=== PATIENT | male | born 1985 | race Caucasian/White ===

== ENCOUNTER 2022-09-19 01:00 | Day surgery (SDC) | payer OTHER, SELFPAY ==
[2022-09-18 08:43] VITALS: BMI 33.2
--- NOTE | 2022-09-19 11:40 | W.PM.OPSUD ---
Surgery/Procedure H&P Update DATE OF PROCEDURE: September 19, 2022 DATE H&P PERFORMED: 08/26/22 PREOP DIAGNOSIS: Incisional hernia PLANNED PROCEDURE: Operation Date: 09/19/22 12:20 Proposed Procedures p lap repair of incisional hernia with mesh 79161,K43.2(Not Applicable) - Neal Vaelnte DO
--- NOTE | 2022-09-19 11:54 | PC.NURSE ---
Pt left before pre-op was complete and rescheduled d/t insurance issues.
== END 2022-09-19 23:00 | disposition home or self-care (01) ==
PROVIDERS: PCP Nurse Practitioner; Visit Provider Surgery
PROC: 0WQF4ZZ Repair Abdominal Wall, Percutaneous Endoscopic Approach (ICD-10-PCS; principal; 2022-09-19 16:25)
DX: Z01.818 Encounter for other preprocedural examination (principal); Z53.8 Procedure and treatment not carried out for other reasons
CPT/HCPCS: J1100; J2250; J2405; J2704; J3010; J3490

== ENCOUNTER 2022-10-21 06:25 | Day surgery (SDC) | payer OTHER, SELFPAY ==
[2022-10-17 13:12] VITALS: BMI 32.3
[2022-10-21] VITALS (9 sets, daily range): BP systolic 116–133; BP diastolic 81–93; PULSE 66–103; RESP 15–18; TEMP 36.4–36.7; O2SAT 91–97
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
[2022-10-21] MEDS: sodium chloride 0.9% 1,000 ML 30 ML IV (07:16)
--- NOTE | 2022-10-21 07:22 | P.HP_ITS ---
Providers/Chief Complaint Primary Care Provider: Roni Goldberg Chief Complaint: K43.2 History of Present Illness Robert Manuel is a 37 year old male here for repair of his incisional hernia Medications/Allergies Home Medications Medication Instructions Recorded Confirmed Last Taken Type hydroxyzine HCl 25 mg tablet 25 mg PO PRN Anxiety 08/26/22 10/17/22 10/20/22 History venlafaxine 25 mg tablet 25 mg PO DAILY 08/26/22 10/17/22 10/20/22 History Allergies Allergy/AdvReac Type Severity Reaction Status Date / Time No Known Allergies Allergy Verified 10/17/22 13:11 PFSH Acute PFSH: Medical History (Updated 08/26/22 @ 14:55 by Neal Valente DO) Hemorrhagic stroke Incisional hernia Surgical History Hx of adenoidectomy Hx of appendectomy Social History Smoking and tobacco status: current every day smoker cigarettes and smokeless tobacco Alcohol intake: former Vitals/I&O/Wt Last Vital Signs Temp 97.5 F L 10/21/22 06:42 Pulse 66 10/21/22 06:42 Resp 18 10/21/22 06:42 BP 121/82 10/21/22 06:42 Pulse Ox 97 10/21/22 06:42 O2 Del Method 10/21/22 06:42 A&P Assessment and plan (1) Incisional hernia: Plan Laparoscopic of incionall hernia repair with mesh Risks and benefits were explained and documented Attestations Medical Necessity Statement*: home Coding Level of Care Code Acute Code for [facility] Fwd Diagnoses Incisional hernia K43.2
--- NOTE | 2022-10-21 07:24 | W.PM.OPSUD ---
Surgery/Procedure H&P Update DATE OF PROCEDURE: October 21, 2022 DATE H&P PERFORMED: 09/19/22 PREOP DIAGNOSIS: Incisional hernia PLANNED PROCEDURE: Operation Date: 10/21/22 08:00 Proposed Procedures p [id number] lap repair of incisional hernia with mesh K43.2(Not Applicable) - Neal Valente DO
[2022-10-21] MEDS: ceFAZolin 2,000 MG in sodium chloride 0.9% (plus) 50 ML 100 MG IV (08:06)
[2022-10-21] MEDS: tranexamic acid 1,000 mg/10mL SDV 1000 MG IV ×2 (08:56→09:53)
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
[2022-10-21] MEDS: fentaNYL 50 mcg/mL INJ 2mL 100 MCG IVP (10:20)
[2022-10-21] MEDS: HYDROcodone-acetaminophen 7.5-325 mg Tablet 1 TAB PO (10:48)
--- NOTE | 2022-10-21 13:16 | ANE.PACU2 ---
Inpatient post-anesthesia follow up: Airway intact: Yes Vital signs: Temperature 98.1 F Pulse Rate 83 Respiratory Rate 16 Blood Pressure 128/81 Pulse Oximetry 94 Oxygen Delivery Me thod Room Air Oxygen Flow Rate 6 Fraction of Inspir ed Oxygen Hydration adequate: Yes Nausea and vomiting: No Pain level: 1 Mental status: Baseline
== END 2022-10-21 12:25 | disposition home or self-care (01) ==
PROVIDERS: PCP Nurse Practitioner; Visit Provider Surgery
PROC: 0WQF4ZZ Repair Abdominal Wall, Percutaneous Endoscopic Approach (ICD-10-PCS; CPT 49593; principal; 2022-10-21 08:00)
DX: K43.2 Incisional hernia without obstruction or gangrene (principal); F17.210 Nicotine dependence, cigarettes, uncomplicated
CPT/HCPCS: 49593; 51702; 88302; C1781; J0690; J1100; J1170; J2250; J2370; J2405; J2704; J2710; J3010; J3490; J7030

== ENCOUNTER 2025-03-27 20:10 | Emergency (ER) | payer BC, SELFPAY ==
[2025-03-27 20:23] VITALS: BP 135/81; PULSE 74; TEMP 36.6; O2SAT 97; BMI 31.5
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
[2025-03-27 20:48] LABS: Glucose Urine UA Negative (Normal); Nitrate Urine Positive (Negative)
[2025-03-27 21:04] LABS: Add Urine Microscopic? YES; Specific Gravity, Urine 1.037 (1.005-1.030); UA Manual Slide Review YES
--- NOTE | 2025-03-27 22:16 | CTR_ITS ---
PROCEDURE INFORMATION: Exam: CT Abdomen And Pelvis Without Contrast Exam date and time: 03/27/2025 10:27 PM Age: 39 years old Clinical indication: Abdominal pain; Prior surgery; Surgery date: 6+ months; Surgery type: Hernia repair. Appy; Left flank pain with hematuria; Additional info: Abd pain hematuria TECHNIQUE: Imaging protocol: Computed tomography of the abdomen and pelvis without contrast. Radiation optimization: All CT scans at this facility use at least one of these dose optimization techniques: automated exposure control; mA and/or kV adjustment per patient size (includes targeted exams where dose is matched to clinical indication); or iterative reconstruction. COMPARISON: No prior studies available. RADIATION DOSE METRICS: Total DLP (mGy-cm): 859.35 FINDINGS: Liver: Calcifications along the anterior right hepatic lobe. Macrolobulated contour of portions of the left hepatic lobe. Gallbladder and biliary ducts: No gallbladder distension or inflammation. No calcified gallstones are apparent. No common bile duct abnormality is evident. Pancreas: No evidence of pancreatitis. No ductal dilation. Spleen: Spleen is mildly enlarged. Adrenal glands: Adrenal glands are within expected limits. Kidneys and ureters: 13 mm calculus in the left renal pelvis near the UPJ with mild proximal pelvicaliectasis. Some adjacent fat stranding as well. Additional small intrarenal calculus within the left kidney. Right kidney and right ureter grossly unremarkable. Stomach and bowel: Small bowel is normal caliber. No obstruction. Large bowel within normal limits. No inflammatory wall thickening or abnormal bowel dilatation. Appendix: No evidence of appendicitis. Intraperitoneal space: No free air. No significant fluid collection. Vasculature: No abdominal aortic aneurysm. Lymph nodes: No pathologically enlarged lymph nodes by CT size criteria. Urinary bladder: Unremarkable as visualized. Reproductive: Unremarkable as visualized. Bones/joints: No acute osseous abnormalities. Soft tissues: Small fat containing umbilical and paraumbilical hernias. CT/CT kidney stone [id number] IMPRESSION: Left renal pelvis 13 mm calculus with some mild obstructive features and adjacent inflammatory stranding. Intermittent obstruction at the UPJ by ball valve mechanism may be present. Additional smaller nonobstructive calculus within the left kidney.
[2025-03-27 22:49] LABS: Hematocrit 42.9 % (37-53); Hemoglobin 15.00 g/dL (11.27-16.99); Mean Corpuscular HGB Conc 35.0 g/dL (30-55); Mean Corpuscular Hemoglobin 31.0 pg (27-33); Mean Corpuscular Volume 88.6 fl (82-101); Nucleated Red Blood Cells % 0 %; Platelet Count 220 10^3/cmm (157-399); Red Blood Count 4.84 10^6/uL (3.85-5.65); White Blood Count 8.98 10^3/uL (3.29-11.43)
[2025-03-27 23:00] VITALS: BP 119/66; PULSE 69; RESP 16; O2SAT 92
[2025-03-27] MEDS: cefTRIAXone 1,000 mg SDV 1000 MG IVP (23:06)
[2025-03-27 23:07] LABS: Alanine Aminotransferase 22 U/L (0-41); Albumin Level 4.3 g/dL (3.5-5.2); Alkaline Phosphatase 75 U/L (40-130); Anion Gap 15.6 (5-19); Aspartate Amino Transferase 17 U/L (0-40); Blood Urea Nitrogen 19 mg/dL (6-20); Calcium 9.8 mg/dL (8.5-10.5); Carbon Dioxide 25 mmol/L (22-29); Chloride 106 mmol/L (98-107); Creatinine Clr Calc Pharmacy 164.4421; Globulin 3.0 g/dL (1.3-4.6); Glucose 79 mg/dL (65-115); Osmolality Calculated 297 mOsm/kg (285-295); Potassium 3.6 mmol/L (3.5-5.1); Sodium 143 mmol/L (136-145); Total Protein 7.3 g/dL (6.6-8.7)
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
[2025-03-28 00:13] VITALS: BP 111/66; PULSE 88; RESP 16; O2SAT 96
== END 2025-03-28 00:14 | disposition home or self-care (01) ==
PROVIDERS: Emergency Provider Emergency Medicine; PCP Family Medicine
DX: N39.0 Urinary tract infection, site not specified (principal); R31.9 Hematuria, unspecified; F17.210 Nicotine dependence, cigarettes, uncomplicated
CPT/HCPCS: 74176; 80053; 81001; 85025; 86140; 87086; 87491; 87591; 96374; 99285; J0696

== ENCOUNTER 2025-04-04 09:42 | Emergency (ER) | payer BC, SELFPAY ==
--- OUTSIDE RECORDS SUMMARY | 2025-03-30 05:00 | XMS_ITS ---
Author Organization [facility], [facility] Address [address] [place] [address] Care Team Providers Care Senior Cisco Network Engineer Name Role Phone Homero Tinsley [phone] Allergies No Known Allergies Results Component Value Reference Range Notes Urinalysis, Routine Reviewed date:03/30/2025 10:49:29 AM Interpretation: Performing Lab: Notes/Report: Urine-Color orange Appearance cloudy Glucose - Bilirubin - Ketones - Specific [place] 1.025 Occult Blood 3+ pH 6.0 Urine [...] with hydronephrosis (N13.2) Active confirmed Problem Nephrolithiasis (96497730) Nephrolithiasis (N20.0) Active confirmed Vital Signs Blood [...] [facility], [place] Javier [address] [place] [address] 03/30/2025 Hmoero Tinsley Ureteral stone with hydronephrosis N13.2 ; [...] Date Bladder Scan 03/30/2025 Electrocardiogram, 12 Lead Tracing-[id number] 03/30/2025 Next Appt Details Follow Up: schedule for L UR S stone manip/stent, Reason: Provider Name:HOMERO Spann, 04/05/2025 06:00:00 AM, [address] [facility] [place], [address], Progress Notes * Marlena ZEEshua RDOB:[birth year] (39 yo M)Acc No.[id number]:03/30/2025 Progress Notes Patient: Robert DIAZ Provider: Joao Tinsley APRN :1985 A ge:39 Y S ex:Male Date:03/30/2025 Address:[place] [address] Subjective: * Chief Complaints: * 1 . [...] * K etones - * S pecific [place] 1.025 * O ccult Blood 3+ * p H 6.0 * U rine Protein 1+ * U robilinogen,Semi-Qn - * N itrite, Urine - * W BC Esterase 1+ ?Procedure: Bladder Scan* Nohemi Guillory 03/30/2025 1 0:47:20 AM CDT > PVR 15ml 2.?Surgical counseling visit?Imaging: Electrocardiogram, 12 Lead Tracing-[id number]* * Procedure Codes: 5 1798 US URINE CAPACITY MEASURE, 47049 URINALYSIS, AUTO, W/O SCOPE * Follow Up: s chedule for L URS stone manip/stent * Billing Information: * Visit Code: 87715 Office Visit, New Pt., Level 3. * Procedure Codes: 05155 US URINE CAPACITY MEASURE. 32458 URINALYSIS, AUTO, W/O SCOPE. Images * mobile_03/30/2025 10:22:22 * Sign off status: Completed true * Provider: Joao Tinsley APRN Date: 0 03/30/2025 Generated for Maria R french/Greg/Sarojitting on: 0 04/04/2025 09:53 AM CDT History and Physical Notes * [...]
--- OUTSIDE RECORDS SUMMARY | 2025-04-04 09:53 | XMS_ITS | Clinical Summary ---
Author Organization [facility] Address [address] Garcia: Epic Prelude ADT [place] [address] Care Team Providers Care Nuclear Logging Engineer Name Role Phone Mekhi Kuo MD Primary [...] on file Legal Sex Male 10:08 AM PIANO ACCOMPANIST Gender Identity Not on file Sexual Orientation Not on file Last Filed Vital Signs Vital Sign Reading Time Taken Comments Blood Pressure 138/78 09/04/2016 12:55 PM PIANO ACCOMPANIST Pulse 102 09/04/2016 12:55 PM PIANO ACCOMPANIST Temperature 36.7 C (98 F) 08/21/2016 11:25 AM PIANO ACCOMPANIST Respiratory Rate 16 08/21/2016 11:25 AM PIANO ACCOMPANIST Oxygen Saturation - - Inhaled Oxygen Concentration - - Weight 86.2 kg (190 lb) 09/04/2016 12:55 PM PIANO ACCOMPANIST Height 177.8 cm (5' 10 ) 09/04/2016 12:55 PM PIANO ACCOMPANIST Body Mass Index 27.26 09/04/2016 12:55 PM PIANO ACCOMPANIST Plan of Treatment Health Maintenance Due Date Last Done Comments DTAP/TDAP/TD VACCINES (1 - Tdap) 2002 HEPATITIS B VACCINES (1 of 3 - 19+ 3-dose series) 2002 INFLUENZA VACCINE (#1) 2025 HPV VACCINES Aged Out No longer eligi ble based on patient's age to complete this topic Medical Devices Implanted Type Area Research Test Engine Evaluator Device Identifier Shelf Expiration Date Model / Serial / Lot [place] Ptfe Thck 1.6mmx2.5x10.2 cm [id number] - [id number] Implanted:Qty: 1 on 07/30/2016 by Anant Nichole Jr., MD Graft N/A: Liver [employer] 04/11/2021 [id number] / / [id number] [place] Ptfe Thck 1.6mmx2.5x2.5c m [id number] - [id number] Implanted:Qty: 1 on 07/30/2016 by Anant Nichole Jr., MD Graft N/A: Liver [employer] 05/12/2021 [id number] / / [id number] Hemostatic Surgicel 6x9in 1947 - [id number] Implanted:Qty: 1 on 07/30/2016 by Anant Nichole Jr., MD Hemostatic N/A: Liver [employer] 02/12/20211945 / / [id number] Explanted Type Area Research Test Engine Evaluator Device Identifier Shelf Expiration Date Model / Serial / Lot Hemostatic Surgicel 6x9in 1945 - [id number] Implanted:Qty: 1 on 07/29/2016 by Deborah Freed DO Explanted:Qty: 1 on 07/30/2016 Hemostatic N/A: Abdomen [employer] 01/12/20211945 / / [id number] Hemostatic Surgicel 6x9in 1946 - [id number] Implanted:Qty: 1 on 07/29/2016 by Deborah Freed DO Explanted:Qty: 1 on 07/30/2016 Hemostatic N/A: Abdomen [employer] 09/14/20201945 / / [id number] Care Teams Nuclear Logging Engineer Relationship Specialty Start Date End Date Mekhi Kuo MD [address] [place] [address] [place] [id number] PCP - General Family Practice 07/29/16
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
--- OUTSIDE RECORDS SUMMARY | 2025-04-04 09:53 | XMS_ITS | Clinical Summary ---
Author Organization [facility] Address [address] [place] [address] Phone Care Team Providers Care Sawing And Assembly Supervisor Name Role Phone Mekhi Kuo MD Primary [...] on file Legal Sex Male 5:19 AM MANAGER LEADERSHIP DEVELOPMENT Gender Identity Not on file Sexual Orientation Not on file Last Filed Vital Signs Vital Sign Reading Time Taken Comments Blood Pressure 138/78 09/04/2016 12:55 PM MANAGER LEADERSHIP DEVELOPMENT Pulse 102 09/04/2016 12:55 PM MANAGER LEADERSHIP DEVELOPMENT Temperature 36.7 C (98 F) 08/21/2016 11:25 AM MANAGER LEADERSHIP DEVELOPMENT Respiratory Rate 16 08/21/2016 11:25 AM MANAGER LEADERSHIP DEVELOPMENT Oxygen Saturation 97% 08/21/2016 11:25 AM MANAGER LEADERSHIP DEVELOPMENT Inhaled Oxygen Concentration - - Weight 86.2 kg (190 lb) 09/04/2016 12:55 PM MANAGER LEADERSHIP DEVELOPMENT Height 177.8 cm (5' 10 ) 09/04/2016 12:55 PM MANAGER LEADERSHIP DEVELOPMENT Body Mass Index 27.26 09/04/2016 12:55 PM MANAGER LEADERSHIP DEVELOPMENT Plan of Treatment Health Maintenance Due Date Last Done Comments HPV VACCINES (1 - Male 3-dose series) 1998 DTAP/TDAP/TD VACCINES (1 - Tdap) 2002 HEPATITIS B VACCINES (1 of 3 - 19+ 3-dose series) 09/15 INFLUENZA VACCINE (#1) 2025 Medical Devices Implanted Type Area Wastewater Supervisor Device Identifier Shelf Expiration Date Model / Serial / Lot [place] Ptfe Thck 1.6mmx2.5x10.2c m [id number] - [id number] Implanted:Qty: 1 on 07/30/2016 by Anant Nichole Jr., MD at [facility] Graft N/A: Liver CR [employer] 04/11/2021 [id number] / / [id number] [place] Ptfe Thck 1.6mmx2.5x2.5cm [id number] - [id number] Implanted:Qty: 1 on 07/30/2016 by Anant Nichole Jr., MD at [facility] Graft N/A: Liver CR [employer] 05/12/2021 [id number] / / [id number] Hemostatic Surgicel 6x9in 1945 - [id number] Implanted:Qty: 1 on 07/30/2016 by Anant Nichole Jr., MD at [facility] Hemostatic N/A: Liver J[employer] 02/12/20211945 / / [id number] Explanted Type Area Wastewater Supervisor Device Identifier Shelf Expiration Date Model / Serial / Lot Hemostatic Surgicel 6x9in 1945 - [id number] Implanted:Qty: 1 on 07/29/2016 by Deborah Freed DO at [facility] Explanted:Qty: 1 on 07/30/[address] [facility] Hemostatic N/A: Abdomen J[employer] 01/12/2021 1946 / / [id number] Hemostatic Surgicel 6x9in 1947 [id number] Implanted:Qty: 1 on 07/29/2016 by Deborah Freed DO at [facility] Explanted:Qty: 1 on 07/30/[address] [facility] Hemostatic N/A: Abdomen J[employer]- [employer] 09/14/2020 1946 / / [id number] Advance Directives For more information, please contact: [phone] * Full Code (Latest Code Status on File) Date Activated Date Inactivated Comments 08/17/2016 4:52 PM 08/21/2016 5:55 PM * Full Code Date Activated Date Inactivated Comments 07/29/2016 2:43 AM 08/09/2016 3:41 PM Care Teams Sawing And Assembly Supervisor Relationship Specialty Start Date End Date Mekhi Kuo MD [address] [place] [address] [place] [address] PCP - General Family Practice 07/29/16
[2025-04-04 10:01] VITALS: BP 152/86; PULSE 73; RESP 18; TEMP 36.6; O2SAT 99; BMI 31.7
[2025-04-04 10:37] LABS: Glucose Urine UA Negative (Normal); Nitrate Urine Negative (Negative); Specific Gravity, Urine 1.030 (1.005-1.030)
[2025-04-04 10:39] LABS: Add Urine Microscopic? YES
--- NOTE | 2025-04-04 11:08 | W.ED.MALEGU ---
HPI - Male Genitourinary General: Chief complaint: Abdominal Pain Stated complaint: kidney pain, vomitting Time Seen by Provider: 04/04/25 11:02 Source: patient Mode of arrival: ambulatory Limitations: no limitations History of Present Illness: 39-year-old male with known 13 mm left kidney stone, who presents to the ED for worsening left flank pain with associated nausea and several episodes of vomiting, onset 3 hours ago. Patient has a lithotripsy procedure scheduled for tomorrow morning with [facility]. He states that he spoke with his surgeon regarding his symptoms and was instructed to come to the ED for nausea and pain control. He rates his pain 9/10 today and had tried taking 600 mg of ibuprofen this morning without any relief. No other complaints at this time. No fevers Onset (ago): hour(s) (3) Duration: constant Location: left flank Severity: severe Severity scale (1-10): 9 Quality: sharp Relieving factors: none Exacerbating factors: none Associated symptoms: Reports nausea and vomiting; Deny dysuria Related Data Home Medications ?Medication ?Instructions ?Recorded ?Confirmed hydroxyzine HCl 25 mg tablet 25 mg PO PRN Anxiety 08/26/22 11/05/22 venlafaxine 25 mg tablet 25 mg PO DAILY 08/26/22 11/05/22 Previous Rx's ?Medication ?Instructions ?Recorded docusate sodium 100 mg capsule 100 mg PO BID #20 caps 10/21/22 (Dulcolax Stool Softener (docusate)) hydrocodone 7.5 mg-acetaminophen 1 tab PO Q6H PRN pain #20 tabs 10/21/22 325 mg tablet cefdinir 300 mg capsule 300 mg PO BID #14 caps 03/27/25 ondansetron 4 mg disintegrating 4 mg PO Q6H PRN nausea and 03/27/25 tablet vomiting #14 tabs tamsulosin 0.4 mg capsule (Flomax) 0.4 mg PO DAILY #14 caps 03/27/25 hydrocodone 5 mg-acetaminophen 325 1 tab PO Q4H PRN pain #7 tabs 04/04/25 mg tablet ondansetron 4 mg disintegrating 4 mg PO Q8H PRN nausea and 04/04/25 tablet vomiting #4 tabs Allergies Allergy/AdvReac Type Severity Reaction Status Date / Time No Known Allergies Allergy Verified 03/27/25 20:28 Review of Systems Const: Denies: fever(s), chills, body aches, fatigue or malaise Card: Denies: chest pain Resp: Denies: dyspnea GI: Reports: nausea and vomiting; Denies: abdominal pain : Reports: flank pain; Denies: difficulty urinating, dysuria, urinary frequency, urinary urgency or urinary hesitancy Skin/Breast: Denies: rash Neuro: Denies: dizziness PFSH ED PFSH: Medical History Incisional hernia Hemorrhagic stroke Surgical History History of incisional hernia repair Hx of adenoidectomy Hx of appendectomy Social History Smoking and tobacco/nicotine status: current every day tobacco/nicotine user cigarettes and smokeless tobacco Alcohol intake: former Physical Exam Const: COMMON NORMALS: no acute distress, average body habitus, patient oriented x3, no limitations, healthy appearing, alert and well nourished GENERAL APPEARANCE: in distress (due to discomfort) ORIENTATION/CONSCIOUSNESS: Yes awake, Yes oriented to person, Yes oriented to place and Yes oriented to time HENMT: COMMON NORMALS: normocephalic HEAD & SCALP: normal to inspection and normocephalic Resp: COMMON NORMALS: normal respiratory effort and clear to auscultation bilaterally AUSCULTATION: clear to auscultation bilaterally Cardio: COMMON NORMALS: regular rate and regular rhythm RATE: regular rate RHYTHM: regular rhythm GI: COMMON NORMALS: Normal to inspection, nondistended, normoactive bowel sounds present, Soft to palpation, non-tender, No hepatosplenomegaly present and no masses INSPECTION: Yes normal to inspection PALPATION: Yes Soft to palpation, No Tenderness to palpation present (GI), No Guarding due to palpation present (GI), No Rigid due to palpation and Yes No hepatosplenomegaly present : BLADDER/KIDNEY EXAM: Yes CVA tenderness on the left Back/Pelvis: GENERAL BACK: Yes CVA tenderness Extremity: GENERAL: Yes normal exam except as noted Neuro: COMMON NORMALS: patient oriented x3, moves all extremities, no focal motor deficits and no sensory deficits noted SENSORIUM/ORIENTATION: Yes alert, Yes oriented to person, Yes oriented to place and Yes oriented to time Skin: COMMON NORMALS: no rashes or lesions noted GENERAL SKIN EXAM: no rashes or lesions noted Course Vital Signs: Vital signs: Vital Signs Temperature 97.9 F 04/04/25 10:01 Pulse Rate 73 04/04/25 10:01 Respiratory Rate 18 04/04/25 11:16 Blood Pressure 152/86 04/04/25 10:01 Pulse Oximetry 99 04/04/25 10:01 MDM - Male Medical Decision Making Patient feeling better after IV medications given here. Vital signs are stable. His blood work showing a normal white count. UA culture from previous visit showed no growth. UA today similar. Is still on his abx that he was prescribed. Will give him pain/nausea medications to last him the rest of the day. He is instructions to be NPO at midnight in preparation for lithotripsy tomorrow at [facility]. Medical Records I reviewed the patient's medical records. Lab Data I reviewed the patient's lab results. 04/04/25 10:57 04/04/25 10:57 Laboratory Results WBC 10.52 10^3/uL (3.29-11.43) 04/04/25 10:57 RBC 5.03 10^6/uL (3.85-5.65) 04/04/25 10:57 Hgb 15.40 g/dL (11.27-16.99) 04/04/25 10:57 Hct 45.7 % (37-53) 04/04/25 10:57 MCV 90.9 fl (82-101) 04/04/25 10:57 MCH 30.6 pg (27-33) 04/04/25 10:57 MCHC 33.7 g/dL (30-55) 04/04/25 10:57 RDW 12.4 % (12.1-15.1) 04/04/25 10:57 Plt Count 239 10^3/cmm (157-399) 04/04/25 10:57 MPV 10.2 fL (7.4-10.4) 04/04/25 10:57 Neut % (Auto) 79.5 % 04/04/25 10:57 Lymph % (Auto) 12.4 % 04/04/25 10:57 [place] % (Auto) 6.7 % 04/04/25 10:57 Eos % (Auto) 0.5 % 04/04/25 10:57 Baso % (Auto) 0.5 % 04/04/25 10:57 Neut # (Auto) 8.38 10^3/uL (1.8-7.7) H 04/04/25 10:57 Lymph # (Auto) 1.3 10^3/uL (0.8-4.8) 04/04/25 10:57 [place] # (Auto) 0.7 10^3/uL (0.2-0.9) 04/04/25 10:57 Eos # (Auto) 0.1 10^3/uL (0.0-0.8) 04/04/25 10:57 Baso # (Auto) 0.1 10^3/uL (0.0-0.1) 04/04/25 10:57 Nucleated RBC % (auto) 0 % 04/04/25 10:57 Nucleated RBCs # 0.0 /100WBC 04/04/25 10:57 Sodium 143 mmol/L (136-145) 04/04/25 10:57 Potassium 4.2 mmol/L (3.5-5.1) 04/04/25 10:57 Chloride 106 mmol/L (98-107) 04/04/25 10:57 Carbon Dioxide 22 mmol/L (22-29) 04/04/25 10:57 Anion Gap 19.2 (5-19) H 04/04/25 10:57 BUN 15 mg/dL (6-20) 04/04/25 10:57 Creatinine 0.9 mg/dL (0.7-1.2) 04/04/25 10:57 GFR Calculation 93.0 mL/min (90-130) 04/04/25 10:57 Glucose 96 mg/dL (65-115) 04/04/25 10:57 Calculated Osmolality 297 mOsm/kg (285-295) H 04/04/25 10:57 Calcium 9.1 mg/dL (8.5-10.5) 04/04/25 10:57 Total Bilirubin 0.6 mg/dL (0.15-1.2) 04/04/25 10:57 AST 22 U/L (0-40) 04/04/25 10:57 ALT 22 U/L (0-41) 04/04/25 10:57 Alkaline Phosphatase 74 U/L (40-130) 04/04/25 10:57 Total Protein 7.4 g/dL (6.6-8.7) 04/04/25 10:57 Albumin 4.5 g/dL (3.5-5.2) 04/04/25 10:57 Globulin 2.9 g/dL (1.3-4.6) 04/04/25 10:57 Urine Color [place] (Yellow) A 04/04/25 10:27 Urine Appearance Turbid (CLEAR) A 04/04/25 10:27 Urine pH 7.5 (5-7) 04/04/25 10:27 Ur Specific [place] 1.030 (1.005-1.030) 04/04/25 10:27 Urine Protein 2+ (Negative) A 04/04/25 10:27 Urine Glucose (UA) Negative (Normal) 04/04/25 10:27 Urine Ketones Negative (Negative) 04/04/25 10:27 Urine Blood 3+ (Negative) A 04/04/25 10:27 Urine Nitrate Negative (Negative) 04/04/25 10:27 Urine Bilirubin 1+ (Negative) H 04/04/25 10:27 Urine Urobilinogen 1.0 mg/dL (Negative) 04/04/25 10:27 Ur Leukocyte Esterase 2+ (Negative) A 04/04/25 10:27 Urine RBC >100 /hpf (0-2) H 04/04/25 10:27 Urine WBC 21-50 /hpf (0-5) H 04/04/25 10:27 Ur Squamous Epith Cells 0-5 /hpf (0-5) 04/04/25 10:27 Amorphous Sediment Not Reportable 04/04/25 10:27 Urine Bacteria None seen /hpf (NONE) 04/04/25 10:27 Hyaline Casts 1.33 /lpf 04/04/25 10:27 No radiology studies performed this visit Discharge Plan Discharge Patient Disposition: Home Clinical Impression: Ureteral stone Condition: Stable Prescriptions: New hydrocodone-acetaminophen 5-325 mg tablet 1 tab PO Q4H PRN (Reason: pain) Qty: 7 0RF ondansetron 4 mg tablet,disintegrating 4 mg PO Q8H PRN (Reason: nausea and vomiting) Qty: 4 0RF No Action hydroxyzine HCl 25 mg tablet 25 mg PO PRN venlafaxine 25 mg tablet 25 mg PO DAILY hydrocodone-acetaminophen 7.5-325 mg tablet 1 tab PO Q6H PRN (Reason: pain) Qty: 20 0RF Dulcolax Stool Softener (dss) 100 mg capsule 100 mg PO BID Qty: 20 0RF cefdinir 300 mg capsule 300 mg PO BID Qty: 14 0RF tamsulosin [Flomax] 0.4 mg capsule 0.4 mg PO DAILY Qty: 14 0RF ondansetron 4 mg tablet,disintegrating 4 mg PO Q6H PRN (Reason: nausea and vomiting) Qty: 14 0RF Discharge Orders: Discharge ED (Routine); Ordered 04/04/25 Ordered By: Prema Wolf Referrals: Gumaro Kuo [Primary Care Provider, Family Practice] Patient Instructions: Ureteral Stones (ED), Opioid Safety, Pain Management, Patient Portal & [place] Instructions Print Language: Wolof Coding Level of Care Code ED Medical Surgical Tech for Eric Aj
[2025-04-04 11:09] LABS: Hematocrit 45.7 % (37-53); Hemoglobin 15.40 g/dL (11.27-16.99); Mean Corpuscular HGB Conc 33.7 g/dL (30-55); Mean Corpuscular Hemoglobin 30.6 pg (27-33); Mean Corpuscular Volume 90.9 fl (82-101); Nucleated Red Blood Cells % 0 %; Platelet Count 239 10^3/cmm (157-399); Red Blood Count 5.03 10^6/uL (3.85-5.65); White Blood Count 10.52 10^3/uL (3.29-11.43)
[2025-04-04 11:16] VITALS: RESP 18
[2025-04-04] MEDS: morphine 4 mg/mL SDV 1 mL IVP (11:16)
[2025-04-04] MEDS: ondansetron 2 mg/ML SDV 2 mL 4 MG IVP (11:16)
[2025-04-04 11:32] LABS: Alanine Aminotransferase 22 U/L (0-41); Albumin Level 4.5 g/dL (3.5-5.2); Alkaline Phosphatase 74 U/L (40-130); Aspartate Amino Transferase 22 U/L (0-40); Blood Urea Nitrogen 15 mg/dL (6-20); Calcium 9.1 mg/dL (8.5-10.5); Carbon Dioxide 22 mmol/L (22-29); Chloride 106 mmol/L (98-107); Creatinine Clr Calc Pharmacy 124.4051; Globulin 2.9 g/dL (1.3-4.6); Glucose 96 mg/dL (65-115); Osmolality Calculated 297 mOsm/kg (285-295); Sodium 143 mmol/L (136-145); Total Protein 7.4 g/dL (6.6-8.7)
[2025-04-04 11:36] LABS: Anion Gap 19.2 (5-19); Potassium 4.2 mmol/L (3.5-5.1)
[2025-04-04 11:48] VITALS: BP 133/82; PULSE 71; RESP 18; O2SAT 95
== END 2025-04-04 11:48 | disposition home or self-care (01) ==
PROVIDERS: Emergency Provider Physician Assistant; PCP Family Medicine
DX: N20.1 Calculus of ureter (principal); F17.210 Nicotine dependence, cigarettes, uncomplicated; Z79.899 Other long term (current) drug therapy; Z86.73 Personal history of transient ischemic attack (TIA), and cerebral infarction without residual deficits
CPT/HCPCS: 36415; 80053; 81001; 85025; 87086; 96374; 96375; 99284; J1885; J2270; J2405

== ENCOUNTER 2025-04-05 03:11 | Emergency (ER) | payer BC, SELFPAY ==
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
--- OUTSIDE RECORDS SUMMARY | 2025-04-04 12:00 | XMS_ITS ---
Author Organization [facility] Address [address] [place] [address] Care Team Providers Care Building Construction Foreman Name Role Phone Homero Tinsley [phone] REASON FOR VISIT UPJ stone Encounters Encounter Location Date Provider Diagnosis [facility] [address] [place] [facility] [place] [address] 04/04/2025 Homero Tinsley Plan Of Treatment Next Appt Details Provider Name:HOMERO Spann, 04/05/2025 06:00:00 AM, [address] [place], [address], Progress Notes * Robert ZEE RDOB:[birth year] (39 yo M)Acc No.[id number]:04/04/2025 Progress Notes Patient: Pillo ARMENDARIZ Robert Spann Provider: Joao Tinsley APRN :1985 A ge:39 Y S ex:Male Date:04/04/2025 Address:[address], [facility] Subjective: * Chief Complaints: * 1 . UPJ stone. * Medical History: Objective: * Vitals: Assessment: Plan: * Treatment: * Billing Information: * Visit Code: * Procedure Codes: * Electronic signature of Maury Tinsley APRN on 04/05/2025 at 03:21 AM CDT Sign off status: Pending * Provider: Joao Tinsley APRN Date: 0 04/04/2025 Generated for Maria R french/Greg/Sarojitting on: 0 04/05/2025 03:21 AM CDT
[2025-04-05 03:16] VITALS: BP 119/103; PULSE 86; RESP 18; TEMP 36.5; O2SAT 90; BMI 32.5
--- OUTSIDE RECORDS SUMMARY | 2025-04-05 03:21 | XMS_ITS | Clinical Summary ---
Author Organization [facility] Address [address] [place] [address] Phone Care Team Providers Care Welder Tech Name Role Phone Mekhi Kuo MD Primary [...] on file Legal Sex Male 5:19 AM TREE SPECIALIST Gender Identity Not on file Sexual Orientation Not on file Last Filed Vital Signs Vital Sign Reading Time Taken Comments Blood Pressure 138/78 09/04/2016 12:55 PM TREE SPECIALIST Pulse 102 09/04/2016 12:55 PM TREE SPECIALIST Temperature 36.7 C (98 F) 08/21/2016 11:25 AM TREE SPECIALIST Respiratory Rate 16 08/21/2016 11:25 AM TREE SPECIALIST Oxygen Saturation 97% 08/21/2016 11:25 AM TREE SPECIALIST Inhaled Oxygen Concentration - - Weight 86.2 kg (190 lb) 09/04/2016 12:55 PM TREE SPECIALIST Height 177.8 cm (5' 10 ) 09/04/2016 12:55 PM TREE SPECIALIST Body Mass Index 27.26 09/04/2016 12:55 PM TREE SPECIALIST Plan of Treatment Health Maintenance Due Date Last Done Comments HPV VACCINES (1 - Male 3-dose series) 1998 DTAP/TDAP/TD VACCINES (1 - Tdap) 2002 HEPATITIS B VACCINES (1 of 3 - 19+ 3-dose series) 09/15 INFLUENZA VACCINE (#1) 2025 Medical Devices Implanted Type Area Dedicated Driver Device Identifier Shelf Expiration Date Model / Serial / Lot [place] Ptfe Thck 1.6mmx2.5x10.2c m [id number] - [id number] Implanted:Qty: 1 on 07/30/2016 by Anant Nichole Jr., MD at [facility] Graft N/A: Liver CR [employer] 04/11/2021 [id number] / / [id number] [place] Ptfe Thck 1.6mmx2.5x2.5cm [id number] - [id number] Implanted:Qty: 1 on 07/30/2016 by Anant Nichole Jr., MD at [facility] Graft N/A: Liver CR [employer] 05/12/2021 [id number] / / [id number] Hemostatic Surgicel 6x9in 1947 - [id number] Implanted:Qty: 1 on 07/30/2016 by Anant Nichole Jr., MD at [facility] Hemostatic N/A: Liver [employer] 02/12/20211945 / / [id number] Explanted Type Area Dedicated Driver Device Identifier Shelf Expiration Date Model / Serial / Lot Hemostatic Surgicel 6x9in 1945 - [id number] Implanted:Qty: 1 on 07/29/2016 by Deborah Freed DO at [facility] Explanted:Qty: 1 on 07/30/2016 at [facility] Hemostatic N/A: Abdomen J[employer] 01/12/2021 1948 / / [id number] Hemostatic Surgicel 6x9in 1947 [id number] Implanted:Qty: 1 on 07/29/2016 by Deborah Freed DO at [facility] Explanted:Qty: 1 on 07/30/2016 at [facility] Hemostatic N/A: Abdomen J[employer] 09/14/2020 1946 / / [id number] Advance Directives For more information, please contact: [phone] * Full Code (Latest Code Status on File) Date Activated Date Inactivated Comments 08/17/2016 4:52 PM 08/21/2016 5:55 PM * Full Code Date Activated Date Inactivated Comments 07/29/2016 2:43 AM 08/09/2016 3:41 PM Care Teams Welder Tech Relationship Specialty Start Date End Date Mekhi Kuo MD [address] [place] [address] [place] [address] PCP - General Family Practice 07/29/16
--- OUTSIDE RECORDS SUMMARY | 2025-04-05 03:21 | XMS_ITS | Clinical Summary ---
Author Organization [facility] Address [address] [facility] [address] Garcia: Epic Prelude ADT [place] [address] Care Team Providers Care Brass Wind Instrument Maker Name Role Phone Mekhi Kuo MD Primary [...] on file Legal Sex Male 10:08 AM CIAIO LUMITE INJECTOR Gender Identity Not on file Sexual Orientation Not on file Last Filed Vital Signs Vital Sign Reading Time Taken Comments Blood Pressure 138/78 09/04/2016 12:55 PM CIAIO LUMITE INJECTOR Pulse 102 09/04/2016 12:55 PM CIAIO LUMITE INJECTOR Temperature 36.7 C (98 F) 08/21/2016 11:25 AM CIAIO LUMITE INJECTOR Respiratory Rate 16 08/21/2016 11:25 AM CIAIO LUMITE INJECTOR Oxygen Saturation - - Inhaled Oxygen Concentration - - Weight 86.2 kg (190 lb) 09/04/2016 12:55 PM CIAIO LUMITE INJECTOR Height 177.8 cm (5' 10 ) 09/04/2016 12:55 PM CIAIO LUMITE INJECTOR Body Mass Index 27.26 09/04/2016 12:55 PM CIAIO LUMITE INJECTOR Plan of Treatment Health Maintenance Due Date Last Done Comments DTAP/TDAP/TD VACCINES (1 - Tdap) 2002 HEPATITIS B VACCINES (1 of 3 - 19+ 3-dose series) 2002 INFLUENZA VACCINE (#1) 2025 HPV VACCINES Aged Out No longer eligi ble based on patient's age to complete this topic Medical Devices Implanted Type Area Repossessor Device Identifier Shelf Expiration Date Model / Serial / Lot [place] Ptfe Thck 1.6mmx2.5x10.2 cm [id number] - [id number] Implanted:Qty: 1 on 07/30/2016 by Anant Nichole Jr., MD Graft N/A: Liver CR [employer] 04/11/2021 [id number] / / [id number] [place] Ptfe Thck 1.6mmx2.5x2.5c m [id number] - [id number] Implanted:Qty: 1 on 07/30/2016 by Anant Nichole Jr., MD Graft N/A: Liver [employer] 05/12/2021 [id number] / / [id number] Hemostatic Surgicel 6x9in 1945 - [id number] Implanted:Qty: 1 on 07/30/2016 by Anant Nichole Jr., MD Hemostatic N/A: Liver [employer] 02/12/20211945 / / [id number] Explanted Type Area Repossessor Device Identifier Shelf Expiration Date Model / Serial / Lot Hemostatic Surgicel 6x9in 1945 - [id number] Implanted:Qty: 1 on 07/29/2016 by Deborah Freed DO Explanted:Qty: 1 on 07/30/2016 Hemostatic N/A: Abdomen J[employer] 01/12/20211945 / / [id number] Hemostatic Surgicel 6x9in 1946 - [id number] Implanted:Qty: 1 on 07/29/2016 by Deborah Freed DO Explanted:Qty: 1 on 07/30/2016 Hemostatic N/A: Abdomen J[employer] 09/14/20201945 / / [id number] Care Teams Brass Wind Instrument Maker Relationship Specialty Start Date End Date Mekhi Kuo MD [address] [place] [address] [place] [address] PCP - General Family Practice 07/29/16
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
--- NOTE | 2025-04-05 04:22 | W.ED.MALEGU ---
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 He has been on antibiotics and pain medication. He has a lithotripsy scheduled for 715 arrival this morning. He was seen yesterday due to increased pain. Pain improved while in the ER. This morning, about an hour prior to calling his ambulance, the pain returned. Pain medication at home was not helping. He was given an infusion of Toradol in the ambulance, which seems to really help his pain currently. No vomiting. No fever. Related Data Home Medications ?Medication ?Instructions ?Recorded ?Confirmed hydroxyzine HCl 25 mg tablet 25 mg PO PRN Anxiety 08/26/22 11/05/22 venlafaxine 25 mg tablet 25 mg PO DAILY 08/26/22 11/05/22 Previous Rx's ?Medication ?Instructions ?Recorded docusate sodium 100 mg capsule 100 mg PO BID #20 caps 10/21/22 (Dulcolax Stool Softener (docusate)) hydrocodone 7.5 mg-acetaminophen 1 tab PO Q6H PRN pain #20 tabs 10/21/22 325 mg tablet cefdinir 300 mg capsule 300 mg PO BID #14 caps 03/27/25 ondansetron 4 mg disintegrating 4 mg PO Q6H PRN nausea and 03/27/25 tablet vomiting #14 tabs tamsulosin 0.4 mg capsule (Flomax) 0.4 mg PO DAILY #14 caps 03/27/25 hydrocodone 5 mg-acetaminophen 325 1 tab PO Q4H PRN pain #7 tabs 04/04/25 mg tablet ondansetron 4 mg disintegrating 4 mg PO Q8H PRN nausea and 04/04/25 tablet vomiting #4 tabs Allergies Allergy/AdvReac Type Severity Reaction Status Date / Time No Known Allergies Allergy Verified 03/27/25 20:28 [facility] ED PFSH: Medical History Incisional hernia Hemorrhagic stroke Surgical History History of incisional hernia repair Hx of adenoidectomy Hx of appendectomy Social History Smoking and tobacco/nicotine status: current every day tobacco/nicotine user cigarettes and smokeless tobacco Alcohol intake: former Physical Exam Const: COMMON NORMALS: no acute distress GENERAL APPEARANCE: cooperative; not ill appearing and not frail appearing HENMT: COMMON NORMALS: normocephalic, atraumatic and Normal external nose present HEAD & SCALP: normocephalic and atraumatic FACE & SINUS: normal facial exam and face symmetric NOSE: Normal external nose present Eye: COMMON NORMALS: Equal, round and reactive pupils present and EOMs intact bilaterally PUPIL: Yes Equal, round and reactive pupils present Neck/C-Spine: GENERAL: Yes trachea midline Chest: CHEST: Yes Symmetrical chest wall rise Resp: COMMON NORMALS: normal respiratory effort, No retractions, No use of accessory muscles and clear to auscultation bilaterally AUSCULTATION: clear to auscultation bilaterally Cardio: COMMON NORMALS: regular rate and regular rhythm RATE: regular rate RHYTHM: regular rhythm GI: COMMON NORMALS: Normal to inspection, nondistended, normoactive bowel sounds present : BLADDER/KIDNEY EXAM: Yes CVA tenderness on the left Back/Pelvis: GENERAL BACK: Yes CVA tenderness Extremity: COMMON NORMALS: no pedal edema Neuro: BILL COMA SCALE: document GCS findings Philipp coma scale eye opening: Spontaneous Bill coma scale verbal response: Orientated Philipp coma scale motor response: Obey commands Philipp coma scale total score: 15 SENSORY EXAM: Yes extremities (intact) Psych: COMMON NORMALS: speech normal SPEECH: Yes normal speech Skin: COMMON NORMALS: no rashes or lesions noted GENERAL SKIN EXAM: no rashes or lesions noted Course Vital Signs: Vital signs: Vital Signs Temperature 97.7 F 04/05/25 03:16 Pulse Rate 86 04/05/25 03:16 Respiratory Rate 18 04/05/25 03:16 Blood Pressure 119/103 04/05/25 03:16 Pulse Oximetry 90 04/05/25 03:16 Oxygen Delivery Me thod Room Air 04/05/25 03:16 MDM - Male Medical Decision Making The patient had blood work done yesterday that was essentially normal. He had a equivocal urinalysis, similar to prior, and had no growth on his culture. His pain is controlled currently after Toradol in the ambulance, IV Dilaudid here. He has definitive management scheduled for 3 hours from now. He will be discharged to outpatient surgery at the outside facility where his urologist is practicing today. He can return in the meantime if he is having problems. No radiology studies performed this visit Discharge Plan Discharge Patient Disposition: Home Clinical Impression: Ureteral stone Condition: Stable Prescriptions: No Action hydroxyzine HCl 25 mg tablet 25 mg PO PRN venlafaxine 25 mg tablet 25 mg PO DAILY hydrocodone-acetaminophen 7.5-325 mg tablet 1 tab PO Q6H PRN (Reason: pain) Qty: 20 0RF Dulcolax Stool Softener (dss) 100 mg capsule 100 mg PO BID Qty: 20 0RF cefdinir 300 mg capsule 300 mg PO BID Qty: 14 0RF tamsulosin [Flomax] 0.4 mg capsule 0.4 mg PO DAILY Qty: 14 0RF ondansetron 4 mg tablet,disintegrating 4 mg PO Q6H PRN (Reason: nausea and vomiting) Qty: 14 0RF hydrocodone-acetaminophen 5-325 mg tablet 1 tab PO Q4H PRN (Reason: pain) Qty: 7 0RF ondansetron 4 mg tablet,disintegrating 4 mg PO Q8H PRN (Reason: nausea and vomiting) Qty: 4 0RF Discharge Orders: Discharge ED (Routine); Ordered 04/05/25 Ordered By: Shan Buenrostro Referrals: Gumaro Kuo [Primary Care Provider, Family Practice] Patient Instructions: Kidney Stones (ED), Opioid Safety, Pain Management, Patient Portal & [place] Instructions Activity Restrictions/Additional Instructions: Report for surgery later this morning as scheduled and instructed. Do not eat or drink anything prior to your arrival. Print Language: Tristanian Coding Level of Care Code ED Criminal Justice Department Chair for Eric Aj
[2025-04-05 04:24] VITALS: BP 123/75; PULSE 69; RESP 16; O2SAT 93
[2025-04-05] MEDS: ondansetron 2 mg/ML SDV 2 mL 4 MG IVP (04:32)
[2025-04-05] MEDS: HYDROmorphone 0.5 MG/0.5 ML INJ 1 MG IVP (04:32)
[2025-04-05 05:00] VITALS: BP 124/74; PULSE 81; RESP 15; O2SAT 92
[2025-04-05 05:50] VITALS: BP 133/106; PULSE 77; RESP 18; O2SAT 97
== END 2025-04-05 05:51 | disposition home or self-care (01) ==
PROVIDERS: Emergency Provider Emergency Medicine; PCP Family Medicine
DX: N20.1 Calculus of ureter (principal); F17.210 Nicotine dependence, cigarettes, uncomplicated; F17.290 Nicotine dependence, other tobacco product, uncomplicated
CPT/HCPCS: 96374; 96375; 99284; J1171; J2405